=== PATIENT | female | born 1955 | race Caucasian/White ===

== ENCOUNTER 2023-09-07 17:04 | Inpatient (IN) | payer OTHER ==
[2023-09-07 17:15] VITALS: BMI 25.8
[2023-09-07 18:43] LABS: BASO % 0.8 % (0-2.0); EOS % 0.8 % (0-4.5); HEMATOCRIT 38.3 % (32.4-45.2); HEMOGLOBIN 12.1 GM/dL (10.7-15.3); LYMPH % 37.1 % (8-40); MCH 26.6 pg (25.7-33.7); MCHC 31.6 g/dl (32.0-36.0); MEAN CELL VOLUME 84.3 fl (80-96); MEAN PLT VOLUME 8.2 fl (7.5-11.1); MONO % 10.1 % (3.8-10.2); NEUT % 51.2 % (42.8-82.8); PLATELET COUNT 284 10^3/uL (134-434); RBC 4.54 M/mm3 (3.60-5.2); RDW 13.7 % (11.6-15.6); WHITE BLOOD COUNT 4.1 K/mm3 (4.0-10.0)
[2023-09-07 19:04] LABS: POTASSIUM 3.5 mmol/L (3.5-5.1)
[2023-09-07 19:07] LABS: ALBUMIN 3.7 g/dl (3.4-5.0); CALCIUM 9.5 mg/dL (8.5-10.1)
[2023-09-07 19:08] LABS: MAGNESIUM 1.7 mg/dL (1.8-2.4)
[2023-09-07 19:10] LABS: CREATININE 0.7 mg/dL (0.55-1.3)
[2023-09-07 19:11] LABS: PHOSPHOROUS 2.6 mg/dL (2.5-4.9)
[2023-09-07 19:12] LABS: BILIRUBIN,TOTAL 0.4 mg/dL (0.2-1); TOT PROT 7.5 g/dl (6.4-8.2)
[2023-09-07 19:22] LABS: BLOOD UREA NITROGEN 7.5 mg/dL (7-18)
[2023-09-07] MEDS ORDERED: HALOPERIDOL LACTATE 5 MG/ML IM PRN (22:58)
[2023-09-07] MEDS ORDERED: QUEtiapine FUMARATE 25 MG TABLET ONE (23:39)
[2023-09-07] MEDS ORDERED: REMDESIVIR 200 MG in SODIUM CHLORIDE 250 ML IVPB ONE (23:45)
[2023-09-08] MEDS: QUEtiapine FUMARATE 25 MG TABLET PO SCH ×3 (00:10→23:08)
[2023-09-08] MEDS ORDERED: MAGNESIUM OXIDE 400 MG TABLET (FP) PO ONE (08:30)
[2023-09-08] MEDS ORDERED: THIAMINE HCL 200 MG/2 ML VIAL ONE (09:07)
[2023-09-08] MEDS ORDERED: MAGNESIUM OXIDE 400 MG TABLET (FP) ONE (09:07)
[2023-09-08] MEDS ORDERED: HALOPERIDOL LACTATE 5 MG/ML ONE (09:23)
[2023-09-08] MEDS: THIAMINE HCL 200 MG/2 ML VIAL IVPB SCH ×3 (09:38→23:09)
[2023-09-08] MEDS: ENOXAPARIN NA (PORCINE) 40 MG/0.4 ML DISP.SYRIN SQ SCH (09:38)
[2023-09-08] MEDS ORDERED: REMDESIVIR 100 MG in SODIUM CHLORIDE 250 ML IVPB SCH (10:00)
[2023-09-08 10:10] LABS: EPI CELLS 7 /uL (0-25.1); HYALINE CASTS 0 /uL (0-3.1); PH,URINE 7.5 (5.0-8.0); URINE APPEARANCE CLEAR; URINE BACTERIA 6 /uL (0-1359); URINE BILIRUBIN NEGATIVE (NEGATIVE); URINE COLOR YELLOW; URINE GLUCOSE (UA) NEGATIVE (NEGATIVE); URINE KETONE NEGATIVE (NEGATIVE); URINE LEUK ESTERASE TRACE (NEGATIVE); URINE NITRITE NEGATIVE (NEGATIVE); URINE PROTEIN NEGATIVE (NEGATIVE); URINE RBC 25 /uL (0-23.9); URINE UROBILINOGEN 0.2 mg/dL (0.2-1.0); URINE WBC 24 /uL (0-25.8)
[2023-09-08 12:02] LABS: BASO % 0.4 % (0-2.0); HEMOGLOBIN 12.7 GM/dL (10.7-15.3); LYMPH % 37.1 % (8-40); MCH 27.1 pg (25.7-33.7); MCHC 31.8 g/dl (32.0-36.0); MEAN CELL VOLUME 85.2 fl (80-96); MEAN PLT VOLUME 8.3 fl (7.5-11.1); MONO % 10.3 % (3.8-10.2); NEUT % 51.2 % (42.8-82.8); PLATELET COUNT 272 10^3/uL (134-434); RDW 13.7 % (11.6-15.6); WHITE BLOOD COUNT 3.7 K/mm3 (4.0-10.0)
[2023-09-08 12:33] LABS: POTASSIUM 3.7 mmol/L (3.5-5.1)
[2023-09-08 12:35] LABS: BLOOD UREA NITROGEN 4.7 mg/dL (7-18); CALCIUM 9.5 mg/dL (8.5-10.1)
[2023-09-08 12:36] LABS: ALBUMIN 3.4 g/dl (3.4-5.0); MAGNESIUM 1.8 mg/dL (1.8-2.4)
[2023-09-08 12:38] LABS: CREATININE 0.5 mg/dL (0.55-1.3); PHOSPHOROUS 2.7 mg/dL (2.5-4.9)
[2023-09-08 12:40] LABS: BILIRUBIN,TOTAL 0.4 mg/dL (0.2-1); TOT PROT 7.1 g/dl (6.4-8.2)
[2023-09-08] MEDS ORDERED: QUEtiapine FUMARATE 25 MG TABLET PO ONE (13:58)
[2023-09-08] MEDS ORDERED: amLODIPine BESYLATE 2.5 MG TABLET (FP) PO ONE (20:13)
[2023-09-09] MEDS ORDERED: REMDESIVIR 100 MG in SODIUM CHLORIDE 230 ML IVPB SCH
[2023-09-09] MEDS: REMDESIVIR 100 MG in SODIUM CHLORIDE 230 ML IVPB SCH ×2 (03:11→20:33)
[2023-09-09] MEDS: THIAMINE HCL 200 MG/2 ML VIAL IVPB SCH ×3 (06:08→22:35)
[2023-09-09] MEDS: ENOXAPARIN NA (PORCINE) 40 MG/0.4 ML DISP.SYRIN SQ SCH (09:59)
[2023-09-09] MEDS: MEMANTINE HCL 5 MG TABLET (UD) PO SCH ×2 (09:59→22:34)
[2023-09-09] MEDS: QUEtiapine FUMARATE 25 MG TABLET PO SCH ×2 (10:02→22:35)
[2023-09-09 10:57] LABS: HEMATOCRIT 36.7 % (32.4-45.2); HEMOGLOBIN 11.9 GM/dL (10.7-15.3); MCH 27.5 pg (25.7-33.7); MCHC 32.4 g/dl (32.0-36.0); MEAN CELL VOLUME 84.9 fl (80-96); MEAN PLT VOLUME 8.4 fl (7.5-11.1); PLATELET COUNT 268 10^3/uL (134-434); RBC 4.33 M/mm3 (3.60-5.2); RDW 13.6 % (11.6-15.6); WHITE BLOOD COUNT 2.8 K/mm3 (4.0-10.0)
[2023-09-09 11:16] LABS: POTASSIUM 3.4 mmol/L (3.5-5.1)
[2023-09-09 11:20] LABS: ALBUMIN 2.8 g/dl (3.4-5.0)
[2023-09-09 11:21] LABS: BLOOD UREA NITROGEN 8.2 mg/dL (7-18); CALCIUM 8.9 mg/dL (8.5-10.1)
[2023-09-09 11:22] LABS: MAGNESIUM 1.9 mg/dL (1.8-2.4)
[2023-09-09 11:23] LABS: CREATININE 0.5 mg/dL (0.55-1.3)
[2023-09-09 11:24] LABS: PHOSPHOROUS 3.1 mg/dL (2.5-4.9)
[2023-09-09 11:25] LABS: BILIRUBIN,TOTAL 0.3 mg/dL (0.2-1)
[2023-09-10] MEDS: THIAMINE HCL 200 MG/2 ML VIAL IVPB SCH ×3 (06:31→22:55)
[2023-09-10] MEDS: QUEtiapine FUMARATE 25 MG TABLET PO SCH ×2 (10:09→22:56)
[2023-09-10] MEDS: MEMANTINE HCL 5 MG TABLET (UD) PO SCH ×2 (10:09→22:55)
[2023-09-10] MEDS: ENOXAPARIN NA (PORCINE) 40 MG/0.4 ML DISP.SYRIN SQ SCH (10:09)
[2023-09-10] MEDS ORDERED: POTASSIUM CHLORIDE ORAL LIQUID 20 MEQ/15 ML PO ONE (13:28)
[2023-09-11] MEDS: THIAMINE HCL 200 MG/2 ML VIAL IVPB SCH ×3 (05:35→21:07)
[2023-09-11 09:27] VITALS: RESP 18
[2023-09-11] MEDS: ENOXAPARIN NA (PORCINE) 40 MG/0.4 ML DISP.SYRIN SQ SCH (09:48)
[2023-09-11] MEDS: MEMANTINE HCL 5 MG TABLET (UD) PO SCH ×2 (09:48→21:07)
[2023-09-11] MEDS: QUEtiapine FUMARATE 25 MG TABLET PO SCH ×2 (09:48→21:07)
[2023-09-11] MEDS ORDERED: QUEtiapine FUMARATE 50 MG TABLET PO SCH (10:02)
[2023-09-11 10:04] LABS: HEMATOCRIT 36.8 % (32.4-45.2); HEMOGLOBIN 11.7 GM/dL (10.7-15.3); MCH 27.2 pg (25.7-33.7); MCHC 31.9 g/dl (32.0-36.0); MEAN CELL VOLUME 85.3 fl (80-96); MEAN PLT VOLUME 8.1 fl (7.5-11.1); PLATELET COUNT 274 10^3/uL (134-434); RBC 4.31 M/mm3 (3.60-5.2); WHITE BLOOD COUNT 3.4 K/mm3 (4.0-10.0)
[2023-09-11 10:18] LABS: BLOOD UREA NITROGEN 7.4 mg/dL (7-18); MAGNESIUM 1.9 mg/dL (1.8-2.4)
[2023-09-11 10:21] LABS: CREATININE 0.6 mg/dL (0.55-1.3); PHOSPHOROUS 2.9 mg/dL (2.5-4.9)
[2023-09-11 10:22] LABS: BILIRUBIN,TOTAL 0.3 mg/dL (0.2-1)
[2023-09-11 10:23] LABS: TOT PROT 6.4 g/dl (6.4-8.2)
[2023-09-11] MEDS: risperiDONE 0.5 MG TABLET PO SCH ×2 (13:15→21:07)
[2023-09-12] MEDS: THIAMINE HCL 200 MG/2 ML VIAL IVPB SCH (05:40)
[2023-09-12 10:19] LABS: HEMOGLOBIN 10.6 GM/dL (10.7-15.3); MCHC 32.2 g/dl (32.0-36.0); MEAN PLT VOLUME 8.1 fl (7.5-11.1); PLATELET COUNT 252 10^3/uL (134-434); RBC 3.93 M/mm3 (3.60-5.2)
[2023-09-12 10:37] LABS: POTASSIUM 3.8 mmol/L (3.5-5.1)
[2023-09-12 10:43] LABS: CALCIUM 8.6 mg/dL (8.5-10.1)
[2023-09-12 10:44] LABS: ALBUMIN 2.7 g/dl (3.4-5.0); BLOOD UREA NITROGEN 10.1 mg/dL (7-18); MAGNESIUM 1.7 mg/dL (1.8-2.4)
[2023-09-12 10:46] LABS: PHOSPHOROUS 3.3 mg/dL (2.5-4.9)
[2023-09-12 10:47] LABS: CREATININE 0.5 mg/dL (0.55-1.3)
[2023-09-12 10:48] LABS: BILIRUBIN,TOTAL 0.4 mg/dL (0.2-1); TOT PROT 5.7 g/dl (6.4-8.2)
[2023-09-12] MEDS: MEMANTINE HCL 5 MG TABLET (UD) PO SCH ×2 (11:36→22:42)
[2023-09-12] MEDS: FOLIC ACID 1 MG TABLET (FP) PO SCH (11:36)
[2023-09-12] MEDS: ENOXAPARIN NA (PORCINE) 40 MG/0.4 ML DISP.SYRIN SQ SCH (11:36)
[2023-09-12] MEDS: risperiDONE 0.5 MG TABLET PO SCH ×2 (11:36→22:42)
[2023-09-12] MEDS: QUEtiapine FUMARATE 25 MG TABLET PO SCH ×2 (11:37→22:42)
[2023-09-12] MEDS ORDERED: MAGNESIUM SULF 50% (8.12 MEQ/2 ML-1 GM VIAL) IVPB ONE (20:35)
[2023-09-12] MEDS ORDERED: MAGNESIUM 2GM/50ML STERILE WATER IVPB IVPB ONE (22:45)
[2023-09-13 10:08] LABS: HEMATOCRIT 36.4 % (32.4-45.2); HEMOGLOBIN 11.7 GM/dL (10.7-15.3); MCHC 32.1 g/dl (32.0-36.0); MEAN CELL VOLUME 84.3 fl (80-96); MEAN PLT VOLUME 8.1 fl (7.5-11.1); PLATELET COUNT 288 10^3/uL (134-434); RBC 4.31 M/mm3 (3.60-5.2); RDW 14.6 % (11.6-15.6); WHITE BLOOD COUNT 3.5 K/mm3 (4.0-10.0)
[2023-09-13] MEDS: ENOXAPARIN NA (PORCINE) 40 MG/0.4 ML DISP.SYRIN SQ SCH (10:12)
[2023-09-13] MEDS: QUEtiapine FUMARATE 25 MG TABLET PO SCH ×2 (10:12→22:20)
[2023-09-13] MEDS: MEMANTINE HCL 5 MG TABLET (UD) PO SCH ×2 (10:13→22:20)
[2023-09-13] MEDS: risperiDONE 0.5 MG TABLET PO SCH ×2 (10:13→22:20)
[2023-09-13] MEDS: FOLIC ACID 1 MG TABLET (FP) PO SCH (10:13)
[2023-09-13] MEDS: THIAMINE HCL 200 MG/2 ML VIAL IVPB SCH (10:15)
[2023-09-13 10:23] LABS: POTASSIUM 3.5 mmol/L (3.5-5.1)
[2023-09-13 10:26] LABS: ALBUMIN 3.1 g/dl (3.4-5.0); BLOOD UREA NITROGEN 9.6 mg/dL (7-18); MAGNESIUM 2.2 mg/dL (1.8-2.4)
[2023-09-13 10:29] LABS: CREATININE 0.7 mg/dL (0.55-1.3); PHOSPHOROUS 2.6 mg/dL (2.5-4.9)
[2023-09-13 10:30] LABS: BILIRUBIN,TOTAL 0.3 mg/dL (0.2-1); TOT PROT 6.5 g/dl (6.4-8.2)
[2023-09-13 10:48] LABS: CALCIUM 9.9 mg/dL (8.5-10.1)
[2023-09-14] MEDS: risperiDONE 0.5 MG TABLET PO SCH ×2 (09:51→22:11)
[2023-09-14] MEDS: MEMANTINE HCL 5 MG TABLET (UD) PO SCH ×2 (09:51→22:11)
[2023-09-14] MEDS: FOLIC ACID 1 MG TABLET (FP) PO SCH (09:51)
[2023-09-14] MEDS: THIAMINE HCL 200 MG/2 ML VIAL IVPB SCH ×2 (09:51→10:00)
[2023-09-14] MEDS: ENOXAPARIN NA (PORCINE) 40 MG/0.4 ML DISP.SYRIN SQ SCH (09:51)
[2023-09-14] MEDS: QUEtiapine FUMARATE 25 MG TABLET PO SCH ×2 (09:51→22:11)
[2023-09-14 11:09] LABS: HEMATOCRIT 38.5 % (32.4-45.2); HEMOGLOBIN 12.3 GM/dL (10.7-15.3); MCH 27.4 pg (25.7-33.7); MCHC 31.9 g/dl (32.0-36.0); MEAN CELL VOLUME 85.9 fl (80-96); MEAN PLT VOLUME 8.2 fl (7.5-11.1); PLATELET COUNT 305 10^3/uL (134-434); RBC 4.48 M/mm3 (3.60-5.2); RDW 14.6 % (11.6-15.6)
[2023-09-14 12:21] LABS: ALBUMIN 3.3 g/dl (3.4-5.0); BILIRUBIN,TOTAL 0.4 mg/dL (0.2-1); BLOOD UREA NITROGEN 10.6 mg/dL (7-18); CALCIUM 9.1 mg/dL (8.5-10.1); CREATININE 0.6 mg/dL (0.55-1.3); MAGNESIUM 1.8 mg/dL (1.8-2.4); PHOSPHOROUS 3.3 mg/dL (2.5-4.9); POTASSIUM 3.9 mmol/L (3.5-5.1); TOT PROT 7.4 g/dl (6.4-8.2)
[2023-09-14] MEDS: THIAMINE HCL 100 MG TABLET (FP) PO SCH ×2 (13:08→22:11)
[2023-09-15 07:14] VITALS: TEMP 98
[2023-09-15] MEDS: ENOXAPARIN NA (PORCINE) 40 MG/0.4 ML DISP.SYRIN SQ SCH (09:08)
[2023-09-15] MEDS: risperiDONE 0.5 MG TABLET PO SCH (09:08)
[2023-09-15] MEDS: QUEtiapine FUMARATE 25 MG TABLET PO SCH (09:08)
[2023-09-15] MEDS: MEMANTINE HCL 5 MG TABLET (UD) PO SCH (09:08)
[2023-09-15] MEDS: THIAMINE HCL 100 MG TABLET (FP) PO SCH (09:08)
[2023-09-15] MEDS: FOLIC ACID 1 MG TABLET (FP) PO SCH (09:08)
[2023-09-15 14:01] VITALS: BP 114/59; PULSE 78
== END 2023-09-15 14:42 | DRG 177 ==
LOC: JER 17:04 → JERBED 21:10 → OBSVTOIN 09-08 14:21 → J5S 09-08 17:55 → J8W 09-13 13:23
PROVIDERS: ADMIT Internal Medicine; ATTEND Nurse Practitioner Acute Care
PROC: XW033E5 Introduction of Remdesivir Anti-infective into Peripheral Vein, Percutaneous Approach, New Technology Group 5 (ICD-10-PCS; principal; 2023-09-07)
DX: U07.1 COVID-19 (principal); G93.41 Metabolic encephalopathy; F03.918 Unspecified dementia, unspecified severity, with other behavioral disturbance; D64.9 Anemia, unspecified
CPT/HCPCS: 0241U-QW; 36415; 70450-TC; 71045-TC-FY; 80053; 80307; 81003; 82140; 82607; 83036; 83735; 84100; 84439; 84443; 84484; 85025; 85027; 86780; 87086; 97116-GP; 97162-GP; 99285-25; G0378; J0248